=== PATIENT | female | born 1955 | race American Indian/Alaskan Native ===

== ENCOUNTER 2018-06-13 10:19 | Outpatient (REF) | payer MEDICARE, OTHER, SELFPAY ==
[2018-06-13 18:50] LABS: TSH 1.35 uIU/mL (0.358-3.74)
== END 2018-06-13 10:39 ==
LOC: NCHCN 10:19
PROVIDERS: PCP Internal Medicine; Visit Provider Nurse Practitioner Family
DX: E03.9 Hypothyroidism, unspecified (principal)
CPT/HCPCS: 84443

== ENCOUNTER 2019-01-23 15:20 | Outpatient (REF) | payer MEDICARE, OTHER, SELFPAY ==
[2019-01-23 19:42] LABS: Anion Gap 9.3 mmol/L (3-11); BUN 8 mg/dL (7-18); CO2 27.7 mmol/L (21.0-32.0); CREATININE 0.82 mg/dL (0.55-1.02); Calcium 9.5 mg/dL (8.5-10.1); Chloride 100 mmol/L (98-107); Glucose 81 mg/dL (70-100); Potassium 4.5 mmol/L (3.5-5.1); Sodium 137 mmol/L (136-145); TSH 1.59 uIU/mL (0.358-3.74)
== END 2019-01-23 15:40 ==
LOC: NCHCN 15:20
PROVIDERS: PCP Internal Medicine; Visit Provider Nurse Practitioner Family
DX: I10 Essential (primary) hypertension (principal); E03.9 Hypothyroidism, unspecified
CPT/HCPCS: 80048; 84443

== ENCOUNTER 2019-09-03 14:33 | Outpatient (REF) | payer MEDICARE, OTHER, SELFPAY ==
[2019-09-03 20:32] LABS: ALT 19 U/L (14-59); AST 26 U/L (15-37); Alkaline Phosphatase 82 U/L (46-116); BUN 16 mg/dL (7-18); Bilirubin, Total 0.4 mg/dL (0.2-1.0); Calcium 9.4 mg/dL (8.5-10.1); Chloride 103 mmol/L (98-107); Glucose 96 mg/dL (74-106); Potassium 4.7 mmol/L (3.5-5.1); Sodium 139 mmol/L (136-145); Total Protein 7.4 g/dL (6.4-8.2)
[2019-09-03 20:37] LABS: Abs Immature Grans 0.02 k/cumm (0.0-0.09); Absolute Basophil Count 0.05 k/cumm (0.0-0.2); Absolute Eosinophil Count 0.24 k/cumm (0.0-0.7); Absolute Monocyte Count 0.49 k/cumm (0.11-0.7); Absolute Neutrophil Count 3.52 k/cumm (1.2-6.7); Basophils % 0.7; Eosinophils % 3.6; HCT 46.5 % (36.0-46.0); HGB 15.5 g/dL (12.0-15.5); Immature Grans % 0.3 %; Lymphocytes % 35.7; Mean Corp. HGB Concentration 33.3 g/dL (32.0-36.0); Mean Corpuscular Hemoglobin 31.5 pg (27.0-33.0); Mean Corpuscular Volume 94.5 fL (80-95); Monocytes % 7.3; Neutrophils % 52.4; Platelet Count 206 x1000/uL (130-400); RBC 4.92 m/cumm (4.00-5.20); RBC Distribution Width 12.4 % (11.7-14.6); White Blood Cell Count 6.72 k/cumm (4.4-10.8)
== END 2019-09-03 14:53 ==
LOC: NCHCN 14:33
PROVIDERS: PCP Internal Medicine; Visit Provider Physician Assistant
DX: R10.11 Right upper quadrant pain (principal)
CPT/HCPCS: 80053; 85025

== ENCOUNTER 2019-12-23 08:37 | Outpatient (REF) | payer MEDICARE, OTHER, SELFPAY ==
[2019-12-23 19:44] LABS: Anion Gap 5.3 mmol/L (3-11); BUN 25 mg/dL (7-18); CO2 31.7 mmol/L (21.0-32.0); CREATININE 1.14 mg/dL (0.55-1.02); Calcium 9.3 mg/dL (8.5-10.1); Calculated LDL 113 mg/dL (<100); Chloride 102 mmol/L (98-107); Cholesterol 191 mg/dL (<200); Estimated GFR 47.69 (mL/min/1.73m2); Glucose 89 mg/dL (74-106); HDL Cholesterol 50 mg/dL (40-60); Potassium 3.7 mmol/L (3.5-5.1); Sodium 139 mmol/L (136-145); TSH 5.33 uIU/mL (0.36-3.74); Triglyceride 143 mg/dL (<150)
== END 2019-12-23 08:57 ==
LOC: NCHCN 08:37
PROVIDERS: PCP Internal Medicine; Visit Provider Nurse Practitioner Family
DX: E78.5 Hyperlipidemia, unspecified (principal); I10 Essential (primary) hypertension; E03.9 Hypothyroidism, unspecified
CPT/HCPCS: 80048; 80061; 84443

== ENCOUNTER 2020-05-07 08:50 | Outpatient (REF) | payer MEDICARE, OTHER, SELFPAY ==
[2020-05-07 19:36] LABS: FREE T4 1.72 ng/dL (0.76-1.46); TSH 0.64 uIU/mL (0.36-3.74)
[2020-05-09 16:42] LABS: T3, Total 137 ng/dL (97-169)
== END 2020-05-07 09:10 ==
LOC: NCHCN 08:50
PROVIDERS: PCP Internal Medicine; Visit Provider Physician Assistant
DX: E03.9 Hypothyroidism, unspecified (principal)
CPT/HCPCS: 84439; 84443; 84480

== ENCOUNTER 2020-06-25 09:06 | Outpatient (REF) | payer MEDICARE, OTHER, SELFPAY ==
[2020-06-25 20:31] LABS: FREE T4 1.08 ng/dL (0.76-1.46); TSH 1.12 uIU/mL (0.36-3.74)
[2020-07-14 11:06] LABS: T3, Total 139 ng/dL (80-200)
== END 2020-06-25 09:26 ==
LOC: NCHCN 09:06
PROVIDERS: PCP Internal Medicine; Visit Provider Physician Assistant
DX: E03.9 Hypothyroidism, unspecified (principal); K21.9 Gastro-esophageal reflux disease without esophagitis
CPT/HCPCS: 84439; 84443; 84480

== ENCOUNTER 2021-05-05 09:41 | Outpatient (REF) | payer OTHER, SELFPAY ==
[2021-05-05 22:36] LABS: Anion Gap 7.4 mmol/L (3-11); BUN 9 mg/dL (7-18); CO2 30.6 mmol/L (21.0-32.0); Calcium 9.5 mg/dL (8.5-10.1); Chloride 105 mmol/L (98-107); Estimated GFR 55.14 (mL/min/1.73m2); FREE T4 1.36 ng/dL (0.76-1.46); Glucose 108 mg/dL (74-106); Potassium 3.8 mmol/L (3.5-5.1); Sodium 143 mmol/L (136-145); TSH 0.35 uIU/mL (0.36-3.74)
[2021-05-06 17:28] LABS: T3, Total 178 ng/dL (97-169)
== END 2021-05-05 09:42 | disposition home or self-care (01) ==
LOC: NCHCN 09:41
PROVIDERS: PCP Internal Medicine; Visit Provider Physician Assistant
DX: I10 Essential (primary) hypertension (principal); E03.9 Hypothyroidism, unspecified; F17.200 Nicotine dependence, unspecified, uncomplicated; J44.9 Chronic obstructive pulmonary disease, unspecified; F41.9 Anxiety disorder, unspecified
CPT/HCPCS: 80048; 84439; 84443; 84480

== ENCOUNTER 2021-07-05 13:10 | Outpatient (REF) | payer OTHER, SELFPAY | END 2021-07-05 13:11 | disposition home or self-care (01) | LOC: NCHCN 13:10 | PROVIDERS: PCP Internal Medicine; Visit Provider Physician Assistant | DX: E03.9 Hypothyroidism, unspecified (principal) | CPT/HCPCS: 84443 ==

== ENCOUNTER 2022-05-10 16:26 | Outpatient (REF) | payer OTHER, SELFPAY ==
[2022-05-17 01:44] LABS: 2-OH-Ethyl-Flurazepam Negative ng/mL (Cutoff: 10); 7-NH-Clonazepam 621 ng/mL (Cutoff: 10); 7-NH-Flunitrazepam Negative ng/mL (Cutoff: 10); Alpha OH-Alprazolam Negative ng/mL (Cutoff: 10); Alpha-OH Midazolam Negative ng/mL (Cutoff: 10); Alpha-OH-Triazolam Negative ng/mL (Cutoff: 10); Alprazolam Negative ng/mL (Cutoff: 10); Benzodiazepines Interpretation Positive.; Chlordiazepoxide Negative ng/mL (Cutoff: 10); Clobazam Negative ng/mL (Cutoff: 10); Clonazepam 12 ng/mL (Cutoff: 10); Diazepam Negative ng/mL (Cutoff: 10); Flurazepam Negative ng/mL (Cutoff: 10); Lorazepam Negative ng/mL (Cutoff: 10); Midazolam Negative ng/mL (Cutoff: 10); N-Desmethylclobazam Negative ng/mL (Cutoff: 10); Prazepam Negative ng/mL (Cutoff: 10); Temazepam Negative ng/mL (Cutoff: 10); Triazolam Negative ng/mL (Cutoff: 10); Zolpidem Carboxylic acid Negative ng/mL (Cutoff: 10)
== END 2022-05-10 16:27 | disposition home or self-care (01) ==
LOC: NCHCN 16:26
PROVIDERS: PCP Internal Medicine; Visit Provider Physician Assistant
DX: E03.9 Hypothyroidism, unspecified (principal); I10 Essential (primary) hypertension; F43.10 Post-traumatic stress disorder, unspecified; F41.9 Anxiety disorder, unspecified
CPT/HCPCS: 80346

== ENCOUNTER 2022-05-18 21:32 | Outpatient (REF) | payer OTHER, SELFPAY ==
[2022-05-18 19:37] LABS: Anion Gap 5.2 mmol/L (3-11); BUN 12 mg/dL (7-18); CO2 30.8 mmol/L (21.0-32.0); CREATININE 0.9 mg/dL (0.55-1.02); Calcium 9.3 mg/dL (8.5-10.1); Chloride 105 mmol/L (98-107); Glucose 78 mg/dL (74-106); Potassium 4.1 mmol/L (3.5-5.1); Sodium 141 mmol/L (136-145); TSH (W/Ref FT4) 1.61 uIU/mL (0.36-3.74)
[2022-05-19 19:56] LABS: T3, Total 148 ng/dL (97-169)
== END 2022-05-18 21:33 | disposition home or self-care (01) ==
LOC: NCHCN 21:32
PROVIDERS: PCP Internal Medicine; Visit Provider Physician Assistant
DX: E03.9 Hypothyroidism, unspecified (principal); I10 Essential (primary) hypertension
CPT/HCPCS: 80048; 84443; 84480

== ENCOUNTER 2023-06-05 16:12 | Outpatient (REF) | payer MEDICARE, SELFPAY ==
[2023-06-05 19:42] LABS: ALT 24 U/L (14-59); AST 22 U/L (15-37); Albumin 3.7 g/dL (3.4-5.0); Alkaline Phosphatase 81 U/L (46-116); Anion Gap 11.1 mmol/L (3-11); BUN 14 mg/dL (7-18); Bilirubin, Total 0.3 mg/dL (0.2-1.0); CO2 24.9 mmol/L (21.0-32.0); Calculated LDL 110 mg/dL (<100); Chloride 108 mmol/L (98-107); Cholesterol 192 mg/dL (<200); Estimated GFR 60.61 (mL/min/1.73m2); Glucose 92 mg/dL (74-106); HDL Cholesterol 64 mg/dL (40-60); Potassium 3.9 mmol/L (3.5-5.1); Sodium 144 mmol/L (136-145); TSH (W/Ref FT4) 4.83 uIU/mL (0.36-3.74); Total Protein 7.5 g/dL (6.4-8.2); Triglyceride 94 mg/dL (<150)
[2023-06-06 18:24] LABS: T3, Total 140 ng/dL (97-169)
[2023-06-11 09:55] LABS: 2-OH-Ethyl-Flurazepam Negative ng/mL (Cutoff: 10); 7-NH-Clonazepam 731 ng/mL (Cutoff: 10); 7-NH-Flunitrazepam Negative ng/mL (Cutoff: 10); Alpha OH-Alprazolam Negative ng/mL (Cutoff: 10); Alpha-OH Midazolam Negative ng/mL (Cutoff: 10); Alpha-OH-Triazolam Negative ng/mL (Cutoff: 10); Alprazolam Negative ng/mL (Cutoff: 10); Benzodiazepines Interpretation Positive.; Chlordiazepoxide Negative ng/mL (Cutoff: 10); Clobazam Negative ng/mL (Cutoff: 10); Clonazepam 10 ng/mL (Cutoff: 10); Diazepam Negative ng/mL (Cutoff: 10); Flurazepam Negative ng/mL (Cutoff: 10); Lorazepam Negative ng/mL (Cutoff: 10); Midazolam Negative ng/mL (Cutoff: 10); N-Desmethylclobazam Negative ng/mL (Cutoff: 10); Prazepam Negative ng/mL (Cutoff: 10); Temazepam Negative ng/mL (Cutoff: 10); Triazolam Negative ng/mL (Cutoff: 10); Zolpidem Carboxylic acid Negative ng/mL (Cutoff: 10)
== END 2023-06-05 16:13 | disposition home or self-care (01) ==
LOC: NCHCN 16:12
PROVIDERS: PCP Internal Medicine; Visit Provider Physician Assistant
DX: E03.9 Hypothyroidism, unspecified (principal); M81.0 Age-related osteoporosis without current pathological fracture; I10 Essential (primary) hypertension; E78.5 Hyperlipidemia, unspecified
CPT/HCPCS: 80053; 80061; 82306; 80346; 84439; 84443; 84480

== ENCOUNTER 2023-07-30 14:52 | Outpatient (REF) | payer MEDICARE, SELFPAY ==
[2023-07-30 20:21] LABS: TSH 1.03 uIU/mL (0.36-3.74)
== END 2023-07-30 14:53 | disposition home or self-care (01) ==
LOC: NCHCN 14:52
PROVIDERS: Physician Assistant; PCP Internal Medicine; Visit Provider Internal Medicine
DX: E03.9 Hypothyroidism, unspecified (principal)
CPT/HCPCS: 84443

== ENCOUNTER 2024-05-20 14:49 | Outpatient (REF) | payer MEDICARE, SELFPAY ==
--- OUTSIDE RECORDS SUMMARY | 2024-05-20 15:26 | XMS_ITS | Encounter Summary ---
Author Organization [facility] Address [address] [place] [address] Care Team Providers Care Recreation Coordinator Name Role Phone Joon Ricardo MD Primary Care Provider [phone] Encounter Details Date Type Department Care Team (Late st Contact Info) Description 05/06/2021 Lab Requisition [facility] [place] Pathology & Laboratory Medicine - [address] [id number] Outr Resulting Lab, Provider Social History Tobacco Use Types Packs/Day Years Used Date Smoking Tobacco: Never Assessed Sex and Gender Information Value Date Recorded Sex Assigned at Not on file Gender Identity Not on file Sexual Orientation Not on file documented as of this encounter Plan of Treatment Not on file documented as of this encounter Procedures Procedure Name Priority Date/Time Associated Diagnosis Comments T3, TOTAL Routine 05/05/2021 8:45 EDT documented in this encounter Results * (ABNORMAL) T3, TOTAL (05/05/2021 8:45 EDT) T3, Total 178(H) 97 - 169 ng/dL 05/06/2021 17:23 EDT [facility] Blood VENOUS BLOOD / Unknown 05/05/2021 8:45 EDT 05/06/2021 16:35 EDT Provider Outr Resulting Lab CHEMISTRY & BLOOD GAS ORDERABLES [facility] [address] [place] [address] documented in this encounter Visit Diagnoses Not on filedocumented in this encounter Care Teams Recreation Coordinator Relationship Specialty Start Date End Date Joon Ricardo MD [address] [place] [address] PCP - General 10/04/11 documented as of this encounter
--- OUTSIDE RECORDS SUMMARY | 2024-05-20 15:26 | XMS_ITS | Encounter Summary ---
Author Organization [facility] Address [address] [place] [address] Care Team Providers Care Quality Assurance Coordinator Name Role Phone Joon Ricardo MD Primary Care Provider Encounter Details Date Type Department Care Team (Late st Contact Info) Description 05/19/2022 Lab Requisition [facility] Pathology & Laboratory Medicine - [facility] [address] [place] [address] Outr Resulting Lab, Provider Social History Tobacco [...] Date/Time Associated Diagnosis Comments T3, TOTAL Routine 05/18/2022 8:30 EDT documented in this encounter Results * T3, TOTAL (05/18/2022 8:30 EDT) T3, Total 148 97 - 169 ng/dL 05/19/2022 19:52 EDT [facility] Blood VENOUS BLOOD / Unknown 05/18/2022 8:30 EDT 05/19/2022 18:58 EDT Provider Outr Resulting Lab CHEMISTRY & BLOOD GAS ORDERABLES [facility] [address] [place] [address] documented in this encounter Visit Diagnoses Not on filedocumented in this encounter Care Teams Quality Assurance Coordinator Relationship Specialty Start Date End Date Joon Ricardo MD [address] [place] [address] PCP - General 10/04/11 documented as of this encounter
--- OUTSIDE RECORDS SUMMARY | 2024-05-20 15:26 | XMS_ITS | Encounter Summary ---
Author Organization [facility] Address [address] [place] [address] Care Team Providers Care Manager Casino Name Role Phone Unavailable Primary Care Provider Unavailabl e Encounter Details Date Type Department Care Team (Late st Contact Info) Description 08/01/2010 Results Only [facility]- [facility] [phone] Mirna Victor MD [address] [place] [address] Social History Tobacco Use Types Packs/Day Years Used Date Smoking Tobacco: Never Assessed Sex and Gender Information Value Date Recorded Sex Assigned at Not on file Gender Identity Not on file Sexual Orientation Not on file documented as of this encounter Plan of Treatment Not on file documented as of this encounter Procedures Procedure Name Priority Date/Time Associated Diagnosis Comments CYTOPATHOLOGY Routine 08/01/2010 0:00 EST documented in this encounter Results * CYTOPATHOLOGY (08/01/2010 0:00 EST) Pathology Report: CYTOPATHOLOGY REPORT ? Reports generated via electronic interface contain original data; ? however they are lacking the format of the original report. ? Caution should be taken when reading/interpreti ng unformatted reports. ? Name: ? AGNES WADDELL ? Accession #: ? [id number] ? : ? 1955 (Age: 55) ??F ?Collect Date: ? 08/01/2010 ? Location: ? [facility] ? Receive Date: ? 08/02/2010 ? Provider: ?MIRNA VICTOR MD ? Copy to: ? Specimen/Source: ?Pap Test, Cervix/Endocervix, ThinPrep Imaging System ? with manual evaluation ? Last Menstrual Period: ? 2002 ? SPECIMEN ADEQUACY ? Satisfactory for Evaluation ? - transformation zone component present ? GENERAL CATEGORIZATION ? Negative for Intraepithelial Lesion or Malignancy ? Document reviewed and electronically signed by: ? Sally Shonna, CT(ASCP) ? Report Date: ??08/09/2010 12:06 ? End of Report ? [facility] 08/01/2010 08/02/2010 Mirna Victor MD PATHOLOGY ORDERABLES [facility] [address] [place] [address] documented in this encounter Visit Diagnoses Not on filedocumented in this encounter
--- OUTSIDE RECORDS SUMMARY | 2024-05-20 15:26 | XMS_ITS | Referral Summary ---
Author Organization [facility] Address [address] [place] [address] Care Team Providers Care Clinical Staff Educator Name Role Phone Joon Ricardo MD Primary Care Provider Social History Tobacco Use Types Packs/Day Years Used Date Smoking Tobacco: Never Assessed Sex and Gender Information Value Date Recorded Sex Assigned at Not on file Gender Identity Not on file Sexual Orientation Not on file Plan of Treatment Not on file Care Teams Clinical Staff Educator Relationship Specialty Start Date End Date Joon Ricardo MD [address] [place] [address] PCP - General 10/04/11
--- OUTSIDE RECORDS SUMMARY | 2024-05-20 15:26 | XMS_ITS | Clinical Summary ---
Author Organization [facility] Address [address] [place] [address] Care Team Providers Care Guest Relations Officer Name Role Phone Joon Ricardo MD Primary Care Provider [phone] Social History Tobacco Use Types Packs/Day Years Used Date Smoking Tobacco: Never Assessed Sex and Gender Information Value Date Recorded Sex Assigned at Not on file Gender Identity Not on file Sexual Orientation Not on file Plan of Treatment Health Maintenance Due Date Last Done Comments Hepatitis C Screen 1955 RSV Immunization ( o r 60+ Years) (1 - 1-dose 60+ series) 2013 Fall Risk Screening 2018 COVID-19 Vaccine ( season) 2023 Care Teams Guest Relations Officer Relationship Specialty Start Date End Date Joon Ricardo MD [address] [place] [address] PCP - General 10/04/11
--- OUTSIDE RECORDS SUMMARY | 2024-05-20 15:26 | XMS_ITS | Encounter Summary ---
Author Organization [facility] Address [address] [place] [address] Care Team Providers Care Vending Route Driver Name Role Phone Joon Ricardo MD Primary Care Provider Encounter Details Date Type Department Care Team (Late st Contact Info) Description 06/06/2023 Lab Requisition [facility] Pathology & Laboratory Medicine - [address] [address] Outr Resulting Lab, Provider Social History Tobacco [...] Date/Time Associated Diagnosis Comments T3, TOTAL Routine 06/05/2023 9:15 EDT documented in this encounter Results * T3, TOTAL (06/05/2023 9:15 EDT) T3, Total 140 97 - 169 ng/dL 06/06/2023 18:20 EDT [facility] Blood VENOUS BLOOD / Unknown 06/05/2023 9:15 EDT 06/06/2023 17:22 EDT Provider Outr Resulting Lab CHEMISTRY & BLOOD GAS ORDERABLES [facility] [address] [place] [address] documented in this encounter Visit Diagnoses Not on filedocumented in this encounter Care Teams Vending Route Driver Relationship Specialty Start Date End Date Joon Ricardo MD [address] [place] [address] PCP - General 10/04/11 documented as of this encounter
--- OUTSIDE RECORDS SUMMARY | 2024-05-20 15:26 | XMS_ITS ---
Author Organization Unknown [facility] No information ASSESSMENT No information CHIEF COMPLAINT No information MEDICATIONS No information OBJECTIVE DATA No information PHYSICAL EXAMINATION No information TREATMENT PLAN Planned Care Start Date Provider Encounter for Check-up [id number] PROBLEMS No information RESULTS No information REVIEW OF SYSTEMS No information SUBJECTIVE DATA No information VITAL SIGNS No information
--- OUTSIDE RECORDS SUMMARY | 2024-05-20 15:26 | XMS_ITS | Encounter Summary ---
Author Organization [facility] Address [address] [place] [address] Care Team Providers Care Mill Tender Name Role Phone Joon Ricardo MD Primary Care Provider [phone] Encounter Details Date Type Department Care Team (Late st Contact Info) Description 07/13/2015 Results Only [facility] [phone] Sridevi Rankin, PRODUCT DESIGN MANAGER [address] [place] [address] Social History Tobacco Use Types Packs/Day Years Used Date Smoking Tobacco: Never Assessed Sex and Gender Information Value Date Recorded Sex Assigned at Not on file Gender Identity Not on file Sexual Orientation Not on file documented as of this encounter Plan of Treatment Not on file documented as of this encounter Procedures Procedure Name Priority Date/Time Associated Diagnosis Comments PAP TEST- RESULT ONLY Routine 07/13/2015 0:00 EST documented in this encounter Results * PAP TEST- RESULT ONLY (07/13/2015 0:00 EST) Pathology Report: CYTOPATHOLOGY REPORT Reports generated via electronic interface contain original data; however they are lacking the format of the original report. Caution should be taken when reading/interpreti ng unformatted reports. Name: ? AGNES WADDELL ? Accession #: ? [id number] ? : ? 1955 (Age: 60) ??F ?Collect Date: ? 07/13/2015 ? Location: ? [facility] ? Receive Date: ? 07/14/2015 ? Provider: SRIDEVI RANKIN NP Copy to: ? Final Report SPECIMEN ADEQUACY ? Satisfactory for Evaluation - transformation zone component present GENERAL CATEGORIZATION ? Negative for Intraepithelial Lesion or Malignancy ?? Specimen/Source: ??Pap Test, Endocervix, ThinPrep Imaging System with manual evaluation Document reviewed and electronically signed by: ? JOSE MIGUEL Vora(ASCP) ? Report ??Date: 07/16/2015 10:12 HPV with Pap Test ? Date Ordered: ? 07/16/2015 ? Status: ?? Signed Out ?Date Complete: ? 07/20/2015 ? By: ??System Interface ? Date Reported: ? 07/20/2015 ? Interpretation RESULT: Negative for HPV. No E6 or E7 mRNA is detected from HPV types 16,18,31,33,35, 39,45,51,52,56,58, 59,66, and 68 by assistant teacher mediated amplification. Comments Document reviewed and electronically signed by: ? System Interface ? Report date: 07/20/2015 By the signature above, the attending physician certifies that he/she has personally conducted a gross and/or microscopic examination of the described specimens and rendered or confirmed the above diagnosis. End of Report [facility] 07/13/2015 07/14/2015 Sridevi Rankin NP PATHOLOGY ORDERABLES [facility] [address] [place] [address] documented in this encounter Visit Diagnoses Not on filedocumented in this encounter Care Teams Mill Tender Relationship Specialty Start Date End Date Joon Ricardo MD [address] [place] [address] PCP - General 10/04/11 documented as of this encounter
--- OUTSIDE RECORDS SUMMARY | 2024-05-20 15:26 | XMS_ITS | Encounter Summary ---
Author Organization [facility] Address [address] [place] [address] Care Team Providers Care Knit Tubing Dyer Name Role Phone Joon Ricardo MD Primary Care Provider Encounter Details Date Type Department Care Team (Late st Contact Info) Description 05/07/2020 Lab Requisition [facility] Pathology & Laboratory Medicine - [facility] [address] [place] [address] Outr Resulting Lab, Provider Social History Tobacco [...] Date/Time Associated Diagnosis Comments T3, TOTAL Routine 05/07/2020 8:20 EDT documented in this encounter Results * T3, TOTAL (05/07/2020 8:20 EDT) T3, Total 137 97 - 169 ng/dL 05/09/2020 16:[address] [facility] Blood VENOUS BLOOD / Unknown 05/07/2020 8:20 EDT 05/09/2020 15:54 EDT Provider Outr Resulting Lab CHEMISTRY & BLOOD GAS ORDERABLES [facility] [address] [place] [address] documented in this encounter Visit Diagnoses Not on filedocumented in this encounter Care Teams Knit Tubing Dyer Relationship Specialty Start Date End Date Joon Ricardo MD [address] [place] [address] PCP - General 10/04/11 documented as of this encounter
--- OUTSIDE RECORDS SUMMARY | 2024-05-20 15:26 | XMS_ITS | Encounter Summary ---
Author Organization [facility] Address [address] [place] [address] Care Team Providers Care Automated Weaver Name Role Phone Joon Ricardo MD Primary Care Provider Encounter Details Date Type Department Care Team (Late st Contact Info) Description 11/25/2013 Results Only [facility]- [facility] [phone] Jag Lucero, MENDEL [address] [place] [address] Social History Tobacco Use Types Packs/Day Years [...] Diagnosis Comments PAP TEST- RESULT ONLY Routine 11/25/2013 0:00 EDT documented in this encounter Results * PAP TEST- RESULT ONLY (11/25/2013 0:00 EDT) Pathology Report: CYTOPATHOLOGY REPORT Reports generated via electronic interface contain original data; however they are lacking the format of the original report. Caution should be taken when reading/interpreti ng unformatted reports. Name: ? AGNES WADDELL ? Accession #: ? [id number] ? : ? 1955 (Age: 58) ??F ?Collect Date: ? 11/25/2013 ? Location: ? [facility] ? Receive Date: ? 11/26/2013 ? Provider: JAG AYALA Copy to: ? Final Report SPECIMEN ADEQUACY ? Satisfactory for Evaluation - transformation zone component present GENERAL CATEGORIZATION ? Negative for Intraepithelial Lesion or Malignancy ?? Menstrual/Pregnanc y Status: ??Post Menopausal Previous Gynecologic Pathology: Yes: Atrophic Vaginitis Specimen/Source: ??Pap Test, Cervix, ThinPrep Imaging System with manual evaluation Document reviewed and electronically signed by: ? JOSE MIGUEL Botello(ASCP) ? Report ??Date: 12/03/2013 08:56 HPV with Pap Test ? Date Ordered: ? 12/03/2013 ? Status: ?? Signed Out ?Date Complete: ? 12/05/2013 ? By: ??System Interface ? Date Reported: ? 12/05/2013 ? Interpretation RESULT: Negative for HPV. No E6 or E7 mRNA is detected from HPV types 16,18,31,33,35, 39,45,51,52,56,58, 59,66, and 68 by rock climbing instructor mediated amplification. Comments Document reviewed and electronically signed by: ? System Interface ? Report date: 12/05/2013 By the signature above, the attending physician certifies that he/she has personally conducted a gross and/or microscopic examination of the described specimens and rendered or confirmed the above diagnosis. End of Report [facility] 11/25/2013 11/26/2013 Jag Lucero PA-C PATHOLOGY ORDERABLES [facility] [address] [place] [address] documented in this encounter Visit Diagnoses Not on filedocumented in this encounter Care Teams Automated Weaver Relationship Specialty Start Date End Date Joon Ricardo MD [address] [place] [address] PCP - General 10/04/11 documented as of this encounter
--- OUTSIDE RECORDS SUMMARY | 2024-05-20 15:26 | XMS_ITS | Encounter Summary ---
Author Organization [facility] Address [address] [place] [address] Care Team Providers Care Drapery Head Former Name Role Phone Unavailable Primary Care Provider Unavailabl e Encounter Details Date Type Department Care Team (Late st Contact Info) Description 09/29/2011 Results Only [facility] [phone] Jag Lucero, M[address]DEL [address] [place] [id number] Social History Tobacco Use Types Packs/Day Years Used Date Smoking Tobacco: Never Assessed Sex and Gender Information Value Date Recorded Sex Assigned at Not on file Gender Identity Not on file Sexual Orientation Not on file documented as of this encounter Plan of Treatment Not on file documented as of this encounter Procedures Procedure Name Priority Date/Time Associated Diagnosis Comments SURGICAL PATHOLOGY Routine 09/29/2011 0:00 EST documented in this encounter Results * SURGICAL PATHOLOGY (09/29/2011 0:00 EST) Pathology Report: SURGICAL PATHOLOGY REPORT Reports generated via electronic interface contain original data; however they are lacking the format of the original report. Caution should be taken when reading/interpreti ng unformatted reports. Name: ? NADIRAAGNES ? Accession #: ? [id number] ? : ? 1955 (Age: 56) ??F ? Collect Date: ? 09/29/2011 ? Location: ? [facility] ? Receive Date: ? 09/30/2011 ? Provider: JAG AYALA Copy to: PERRI CARDENAS MD ? Final Pathologic Diagnosis: ? 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 Microscopic Description: ? The epidermis is unremarkable. ??Within the dermis, there is a spindle cell proliferation that is poorly circumscribed. ??The spindle cells have uniform, long, wavy nuclei with tapered ends. ??The cells are associated with thin, wavy collagen and myxoid stoma. ??There are mast cells evident within the stroma. (Dr. Trevizo)/[facility] ?? Document reviewed and electronically signed by: REGINO TREVIZO MD Report ??Date: 10/03/2011 12:34 By the signature above, the attending physician certifies that he/she has personally conducted a gross and/or microscopic examination of the described specimens and rendered or confirmed the above diagnosis. Specimen(s) Received: ? 0.5 x 0.75 skin lesion posterior thorax midline Clinical History: ? Skin lesion Gross Description: ? Received in formalin labelled Agnes Schafer and skin lesion posterior thorax midline is a 0.8 x 0.5 cm irregular shave biopsy of riley-white skin. There is a central 0.8 x 0.7 x 0.6 cm irregular, riley-celis, bosselated, pedunculated, polypoid papule. ??The specimen is trisected and entirely submitted in a single cassette. ??(Braden Anaya)/danna End of Report [facility] 09/29/2011 09/30/2011 10: 19 EST Jag Lucero PA-C PATHOLOGY ORDERABLES Performing Organization Address City/State/[facility] Co de Phone Number [facility] [address] [place] [address] documented in this encounter Visit Diagnoses Not on filedocumented in this encounter
[2024-05-20 19:17] LABS: Abs Immature Grans 0.02 10^3/uL (0.0-0.06); Absolute Basophil Count 0.08 10^3/uL (0.0-0.2); Absolute Eosinophil Count 0.34 10^3/uL (0.0-0.7); Absolute Lymphocyte Count 3.02 10^3/uL (1.2-3.4); Absolute Monocyte Count 0.68 10^3/uL (0.1-0.8); Absolute Neutrophil Count 3.83 10^3/uL (1.2-6.7); Eosinophils % 4.3 %; HCT 47.2 % (36.0-46.0); HGB 15.4 g/dL (11.2-15.7); Immature Grans % 0.3 %; Lymphocytes % 37.9 %; MCH 32.1 pg (27.0-33.0); MCHC 32.6 % (32.0-36.0); MCV 98 fL (80-95); MPV 11.4 fL (8.0-11.0); Monocytes % 8.5 %; Platelet Count 224 10^3/uL (130-400); RDW 12.3 % (11.7-14.6); RDW-SD 44.6 fL; WBC 7.97 10^3/uL (4.4-10.8)
[2024-05-20 20:00] LABS: ALT 25 U/L (14-59); AST 24 U/L (15-37); Albumin 3.6 g/dL (3.4-5.0); Alkaline Phosphatase 83 U/L (46-116); Anion Gap 5.9 mmol/L (3-11); BUN 10 mg/dL (7-18); Bilirubin, Total 0.22 mg/dL (0.2-1.0); CO2 30.1 mmol/L (21.0-32.0); CREATININE 0.9 mg/dL (0.55-1.02); Chloride 109 mmol/L (98-107); Estimated GFR 68.35 (mL/min/1.73m2); Glucose 95 mg/dL (74-106); Potassium 4.1 mmol/L (3.5-5.1); Sodium 145 mmol/L (136-145); TSH 0.88 uIU/Ml (0.36-3.74); Total Protein 7.5 g/dL (6.4-8.2)
[2024-05-20 20:45] LABS: Vitamin B12 727 pg/mL (193-986); Vitamin D 25 Total 82.6 ng/mL (30-100)
[2024-05-20 20:50] LABS: Folate > 20.0 ng/mL (8.6-20.0)
[2024-05-21 17:47] LABS: T3, Total 171 ng/dL (97-169)
[2024-05-26 12:49] LABS: 2-OH-Ethyl-Flurazepam Negative ng/mL (Cutoff: 10); 7-NH-Clonazepam 765 ng/mL (Cutoff: 10); 7-NH-Flunitrazepam Negative ng/mL (Cutoff: 10); Alpha OH-Alprazolam Negative ng/mL (Cutoff: 10); Alpha-OH Midazolam Negative ng/mL (Cutoff: 10); Alpha-OH-Triazolam Negative ng/mL (Cutoff: 10); Alprazolam Negative ng/mL (Cutoff: 10); Benzodiazepines Interpretation Positive.; Chlordiazepoxide Negative ng/mL (Cutoff: 10); Clobazam Negative ng/mL (Cutoff: 10); Clonazepam 42 ng/mL (Cutoff: 10); Diazepam Negative ng/mL (Cutoff: 10); Flurazepam Negative ng/mL (Cutoff: 10); Lorazepam Negative ng/mL (Cutoff: 10); Midazolam Negative ng/mL (Cutoff: 10); N-Desmethylclobazam Negative ng/mL (Cutoff: 10); Prazepam Negative ng/mL (Cutoff: 10); Temazepam Negative ng/mL (Cutoff: 10); Triazolam Negative ng/mL (Cutoff: 10); Zolpidem Carboxylic acid Negative ng/mL (Cutoff: 10)
== END 2024-05-20 14:50 | disposition home or self-care (01) ==
LOC: NCHCN 14:49
PROVIDERS: PCP Internal Medicine; Visit Provider Physician Assistant
DX: D64.9 Anemia, unspecified (principal); E55.9 Vitamin D deficiency, unspecified; E03.9 Hypothyroidism, unspecified
CPT/HCPCS: 80053; 82306; 80346; 82607; 82746; 84439; 84443; 84480; 85025

== ENCOUNTER 2025-05-21 19:11 | Outpatient (REF) | payer MEDICARE, SELFPAY ==
[2025-05-21 20:24] LABS: ALT 23 U/L (14-59); AST 21 U/L (15-37); Albumin 3.6 g/dL (3.4-5.0); Alkaline Phosphatase 93 U/L (46-116); Anion Gap 8.3 mmol/L (3-11); BUN 15 mg/dL (7-18); Bilirubin, Total 0.3 mg/dL (0.2-1.0); CO2 29.7 mmol/L (21.0-32.0); Calcium 9.3 mg/dL (8.5-10.1); Chloride 103 mmol/L (98-107); Estimated GFR 67.92 (mL/min/1.73m2); Glucose 92 mg/dL (74-106); HCT 45.8 % (36.0-46.0); HGB 15.0 g/dL (11.2-15.7); MCH 31.6 pg (27.0-33.0); MCHC 32.8 % (32.0-36.0); MCV 96 fL (80-95); MPV 11.4 fL (8.0-11.0); Magnesium 2.0 mg/dL (1.8-2.4); Platelet Count 215 10^3/uL (130-400); Potassium 4.5 mmol/L (3.5-5.1); RBC 4.75 10^6/uL (3.93-5.22); RDW 11.9 % (11.7-14.6); RDW-SD 41.9 fL; Sodium 141 mmol/L (136-145); TSH (W/Ref FT4) 0.13 uIU/mL (0.36-3.74); Total Protein 7.4 g/dL (6.4-8.2); WBC 7.61 10^3/uL (4.4-10.8)
[2025-05-22 17:47] LABS: T3, Total 134 ng/dL (82-158)
[2025-05-27 10:37] LABS: 2-OH-Ethyl-Flurazepam Negative ng/mL (Cutoff: 10); 7-NH-Clonazepam 602 ng/mL (Cutoff: 10); 7-NH-Flunitrazepam Negative ng/mL (Cutoff: 10); Alpha OH-Alprazolam Negative ng/mL (Cutoff: 10); Alpha-OH Midazolam Negative ng/mL (Cutoff: 10); Benzodiazepines Interpretation Positive.; Prazepam Negative ng/mL (Cutoff: 10); Zolpidem Carboxylic acid Negative ng/mL (Cutoff: 10)
== END 2025-05-21 19:12 | disposition home or self-care (01) ==
LOC: NCHCN 19:11
PROVIDERS: PCP Internal Medicine; Visit Provider Physician Assistant
DX: F41.9 Anxiety disorder, unspecified (principal); I10 Essential (primary) hypertension
CPT/HCPCS: 80053; 85027; 80346; 83735; 84439; 84443; 84480

== ENCOUNTER 2025-07-02 15:52 | Outpatient (REF) | payer MEDICARE, SELFPAY ==
[2025-07-02 19:43] LABS: TSH 0.65 uIU/mL (0.55-4.78)
[2025-07-03 18:02] LABS: T3, Total 112 ng/dL (82-158)
== END 2025-07-02 15:53 | disposition home or self-care (01) ==
LOC: NCHCN 15:52
PROVIDERS: PCP Internal Medicine; Visit Provider Physician Assistant
DX: E03.9 Hypothyroidism, unspecified (principal)
CPT/HCPCS: 84439; 84443; 84480